=== PATIENT | male | born 1955 | race Caucasian/White ===

== ENCOUNTER 2018-12-05 03:29 | Emergency (ER) | payer BC ==
[~2018-12-05] VITALS: Ht 177.8 cm; Wt 111.1 kg
[2018-12-05] VITALS (13 sets, daily range): BP systolic 117–178; BP diastolic 63–101
--- NOTE | ~2018-12-05 | EKG ---
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
--- NOTE | ~2018-12-05 | EKG ---
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: : 1955 Requested By: CURTIS SCHAEFER Order Number: [id number] Reading MD: Sana Long MD Measurements Intervals [place] Rate: 106 P: 87 ID: 128 QRS: 57 QRSD: 108 T: -16 QT: 394 QTc: 524 Interpretive Statements Sinus tachycardia Atrial premature complex Low voltage, extremity and precordial leads Anteroseptal infarct, old ST depr, consider ischemia, inferior leads Borderline ST elevation, lateral leads Prolonged QT interval Baseline wander in lead(s) II,III,aVF,V1,V2,V3,V4,V5,V6 No previous ECG available for comparison Electronically Signed On 12-05-2018 15:44:56 PST by Sana Long MD CM:EKGRPT:ELECTROCARDIOGRAM REPORT [id number] CURTIS KULKARNI DRAFT REPORT CURTIS SCHAEFER DO
--- NOTE | ~2018-12-05 | EKG ---
[place], [place] ELECTROCARDIOGRAM REPORT NAME: SHANI OLIVARES UNIT #: [id number] ROOM: DOCTOR: EPIPHANY DRAFT REPORT BIRTHDATE: [birth year] [facility] Test Date: 2018-12-05 Test Time: 06:58:05 Pat Name: SHANI OLIVARES Department: Room: [facility] Gender: M Cadet Deck: Kary Stein : 1955 Requested By: CURTIS SCHAEFER Order Number: [id number] Reading MD: Sana Long MD Measurements Intervals [place] Rate: 70 P: 82 [place]: 136 QRS: 77 QRSD: 94 T: 79 QT: 391 QTc: 422 Interpretive Statements Sinus rhythm Anteroseptal infarct, age indeterminate No previous ECG available for comparison Electronically Signed On 12-05-2018 15:47:04 PST by Sana Long MD CM:EKGRPT:ELECTROCARDIOGRAM REPORT [id number] CURTIS KULKARNI DRAFT REPORT CURTIS SCHAEFER DO
[~2018-12-05 03:29] MED LIST: DICLOFENAC SOD75 MG PO; ENDOCET 325 MG-1 TA2 PO; LISINOPRIL-HYDR1 TA1 PO; OMEPRAZOLE40 MG PO; SIMVASTATIN20 MG PO
[2018-12-05 03:45] LABS: BASO # 0.1 10*3/uL (0.0-0.1); BASO % 0.9 % (0.0-1.0); EOS # 0.2 10*3/uL (0.0-0.4); EOS % 1.5 % (1.0-4.0); HEMATOCRIT 48.8 % (42.0-52.0); HEMOGLOBIN 16.5 g/dl (14.0-18.0); LYMPH # 2.7 10*3/uL (1.3-4.4); LYMPH % 23.6 % (27.0-41.0); MEAN CELL VOLUME 86.4 fl (80.0-94.0); MEAN CORPUSCULAR HGB 29.2 pg (27.0-31.0); MEAN CORPUSCULAR HGB CONC 33.8 g/dl (33.0-37.0); MEAN PLATELET VOLUME 11.1 fl (9.6-12.3); MONO # 0.8 10*3/uL (0.1-1.0); MONO % 6.8 % (3.0-9.0); NEUT # 7.6 10*3/uL (2.3-7.9); NEUT % 66.8 % (47.0-73.0); PLATELET COUNT AUTOMATED 283 10*3/uL (130-400); RED BLOOD COUNT 5.65 10*6/uL (4.50-5.90); RED CELL DISTRI WIDTH 12.7 % (0-14.5); WHITE BLOOD COUNT 11.4 10*3/uL (4.8-10.8)
[2018-12-05 03:55] LABS: ACT PARTIAL THROMBO TIME 26.8 SECONDS (20.8-31.5)
--- NOTE | 2018-12-05 04:00 | NUR ---
PER PATIENT PAIN HAS DECREASED AFTER MEDICATION ADMINISTRATION. 03/13 PRESSURE.
[2018-12-05 04:28] LABS: ALBUMIN 3.4 gm/dl (3.1-4.5); ALKALINE PHOSPHATASE 80 U/L (45-117); BUN 10 mg/dl (7-24); CHLORIDE 108 mmol/L (98-107); CREATININE 1.15 mg/dL (0.70-1.30); POTASSIUM 3.6 mmol/L (3.5-5.1); SGOT/AST 18 IU/L (3-35); SGPT/ALT 39 U/L (12-78); SODIUM 140 mmol/L (136-145); TOTAL PROTEIN 6.7 gm/dL (6.4-8.2)
--- NOTE | 2018-12-05 04:31 | NUR ---
CRITICAL TROPONIN 0.450, DR CSHAEFER AWARE
--- NOTE | 2018-12-05 04:55 | NUR ---
UNABLE TO TAKE PATIENT TO ICU DUE TO STAFFING.
--- NOTE | 2018-12-05 05:43 | NUR ---
PATIENT SITTING UP IN BED AT THIS TIME WITH AT THE BEDSIDE. RESPIRATIONS EASY, NON-LABORED ON 3L O2 PER NASAL CANNULA. SIDERAILS X2. RN WILL CONTINUE TO MONITOR.
--- NOTE | 2018-12-05 06:10 | NUR ---
PATIENT DOES NOT WANT TO TAKE PANTS OFF UNTIL HE GETS UPSTAIRS. PROVIDED PATIENT WITH SLIPPER SOCKS AT THIS TIME. PATIENT REFUSED TO USE URINAL AT THIS TIME, ASSISTED PATIENT TO RESTROOM. RESPIRATIONS EASY, NON-LABORED ON ROOM AIR. RN WILL CONTINUE TO MONITOR.
[2018-12-05 06:26] LABS: BILIRUBIN NEGATIVE (NEGATIVE); BLOOD NEGATIVE (NEGATIVE); CLARITY CLEAR (CLEAR); COLOR YELLOW (YELLOW); GLUCOSE NEGATIVE (NEGATIVE); KETONE NEGATIVE (NEGATIVE); LEUKO ESTERASE NEGATIVE (NEGATIVE); NITRITE NEGATIVE (NEGATIVE); UROBILINOGEN 0.2 E.U./dl (0.2-1.0)
[2018-12-05 06:42] LABS: BASO # 0.1 10*3/uL (0.0-0.1); BASO % 0.6 % (0.0-1.0); EOS # 0.1 10*3/uL (0.0-0.4); EOS % 0.5 % (1.0-4.0); HEMATOCRIT 44.3 % (42.0-52.0); HEMOGLOBIN 15.3 g/dl (14.0-18.0); LYMPH # 1.4 10*3/uL (1.3-4.4); LYMPH % 11.3 % (27.0-41.0); MEAN CELL VOLUME 85.5 fl (80.0-94.0); MEAN CORPUSCULAR HGB 29.5 pg (27.0-31.0); MEAN CORPUSCULAR HGB CONC 34.5 g/dl (33.0-37.0); MONO # 0.7 10*3/uL (0.1-1.0); MONO % 5.4 % (3.0-9.0); NEUT # 10.3 10*3/uL (2.3-7.9); NEUT % 81.6 % (47.0-73.0); PLATELET COUNT AUTOMATED 232 10*3/uL (130-400); RED BLOOD COUNT 5.18 10*6/uL (4.50-5.90); RED CELL DISTRI WIDTH 12.6 % (0-14.5); WHITE BLOOD COUNT 12.6 10*3/uL (4.8-10.8)
[2018-12-05 06:46] LABS: MUCOUS 2+
--- NOTE | 2018-12-05 07:04 | NUR ---
PT REPORT RECEIVED. PT SITTING UP IN BED, NO VOICED COMPLAINTS. VITALS STABLE AND IN NORMAL LIMITS. AWAITING OPPORTUNITY TO TRANSPORT PT TO ICCU, BED ASSIGNED.
[2018-12-05 07:09] LABS: ALBUMIN 3.6 gm/dl (3.1-4.5); ALKALINE PHOSPHATASE 72 U/L (45-117); BUN 10 mg/dl (7-24); CHLORIDE 106 mmol/L (98-107); CHOLESTEROL 141 mg/dL (<200); CREATININE 1.02 mg/dL (0.70-1.30); HDL CHOLESTEROL 34 mg/dl (40-60); LDL CHOLESTEROL 83 mg/dL (9-159); PHOSPHOROUS 3.4 mg/dL (2.5-4.9); SGOT/AST 54 IU/L (3-35); SGPT/ALT 43 U/L (12-78); SODIUM 138 mmol/L (136-145); TOTAL PROTEIN 6.5 gm/dL (6.4-8.2); TRIGLYCERIDES 120 mg/dl (<150); VLDL CHOLESTEROL 24 mg/dL (6-40)
--- NOTE | 2018-12-05 07:12 | NUR ---
TROPONIN NOW 8.[address] RODARTE MADE AWARE.
[2018-12-05 07:13] LABS: THYROID STIM HORMONE (HS) 0.242 uIU/ml (0.358-4.75)
[2018-12-05 07:20] LABS: ACT PARTIAL THROMBO TIME 72.6 SECONDS (20.8-31.5)
--- NOTE | 2018-12-05 07:22 | NUR ---
DR RODARTE NOW REVIEWS PRIOR EKG'S AND STATED THE INITIAL EKG SHOWS A STEMI, ADMISSION CANCELLED, TRANSFER PENDING. PT'S PAIN HAS JUST MOMENTS AGO WORSENED AND HE NOW REQUESTS MED FOR IT. DR RODARTE MADE AWARE.
--- NOTE | 2018-12-05 07:43 | NUR ---
PT EXPRESSES GREAT RELIEF IN PAIN SINCE MORPHINE AND NTG DOSING. VITALS STABLE AND WITHIN NORMAL LIMITS.
--- NOTE | 2018-12-05 07:50 | NUR ---
PT TRANSPORTED OUT VIA [facility], ALL BELONGINGS TAKEN BY , NOTHING LEFT IN ROOM. PT TO GO STRAIGHT TO STOVE TENDER. NURSE REPORT PROVIDED TO MARCIE SWANN, AT [place] [facility]. PT EXPRESSES ALL HIS PAIN IS RELIEVED FROM MED DOSING. HEPARIN DOSE INFUSING ORDERED. VITALS STABLE AND WITHIN NORMAL LIMITS.
== END 2018-12-05 07:50 | disposition short-term general hospital (02) ==
LOC: ED 03:29 → EDHOLD 04:38 → ICCU 04:38 → ED 04:38 → EDHOLD 06:47 → ICCU 06:47 → ED 07:50 → ICCU 08:04
PROVIDERS: Family Medicine; Student in an Organized Health Care Education/Training Program
DX: I21.4 Non-ST elevation (NSTEMI) myocardial infarction (principal); Z79.899 Other long term (current) drug therapy

== ENCOUNTER → 2023-11-10 | Outpatient (CLI) | payer MEDICARE | END | disposition home or self-care (01) | LOC: RESCLI 08:24 | PROVIDERS: ATTEND Student in an Organized Health Care Education/Training Program | DX: I25.10 Atherosclerotic heart disease of native coronary artery without angina pectoris (principal); E78.5 Hyperlipidemia, unspecified; M54.9 Dorsalgia, unspecified; J44.9 Chronic obstructive pulmonary disease, unspecified; Z98.890 Other specified postprocedural states; Z79.899 Other long term (current) drug therapy; Z88.8 Allergy status to other drugs, medicaments and biological substances; Z82.49 Family history of ischemic heart disease and other diseases of the circulatory system ==

== ENCOUNTER 2025-05-22 07:41 | Emergency (ER) | payer MEDICARE ==
[~2025-05-22] VITALS: Wt 84.4 kg
[2025-05-22] MEDS ORDERED: FAMOTIDINE 50 ML IV ONE (07:45)
[2025-05-22] MEDS ORDERED: Ondansetron Hydrochloride 4 MG/2 ML VIAL IV ONE (07:50)
[2025-05-22] MEDS ORDERED: ASPIRIN, CHEWABLE 81 MG TAB PO ONE (08:00)
[2025-05-22] MEDS ORDERED: HEPARIN SODIUM 250 ML IV SCH (08:00)
[2025-05-22] MEDS ORDERED: TICAGRELOR 90 MG TABLET PO ONE (08:00)
[2025-05-22] MEDS ORDERED: EPINEPHrine Hydrochloride 1 MG/ML AMP ONE (08:01)
[2025-05-22] MEDS ORDERED: diphenhydrAMINE hydrochloride 50 MG/ML VIAL ONE (08:01)
[2025-05-22] MEDS ORDERED: EPINEPHrine Hydrochloride 1 MG/10 ML SYR IV ONE (08:12)
[2025-05-22] MEDS ORDERED: ATROPINE SULFATE 1 MG/10 ML SYR IV ONE (08:12)
[2025-05-22] MEDS ORDERED: SODIUM CHLORIDE 0.9% 1,000 ML IV ONE ×2 (08:21→08:40)
== END 2025-05-22 08:53 | disposition short-term general hospital (02) ==
LOC: ED 07:41
DX: I21.3 ST elevation (STEMI) myocardial infarction of unspecified site (principal); I25.10 Atherosclerotic heart disease of native coronary artery without angina pectoris; Z79.899 Other long term (current) drug therapy; Z98.890 Other specified postprocedural states; Z87.891 Personal history of nicotine dependence; Z91.030 Bee allergy status